=== PATIENT | male | born 1945 | race Caucasian/White ===

== ENCOUNTER 2018-06-08 05:44 | Inpatient (IN) ==
[2018-06-08] MEDS ORDERED: Metoprolol Tartrate 25 MG Tablet PO SCH (06:30)
[2018-06-08] MEDS ORDERED: Chlorhexidine Gluconate 2% 1 Pack (2 Cloths) TOPICAL SCH (06:30)
[2018-06-08] MEDS ORDERED: Sodium Chlor 0.9% Inj 500 ML IV.SIG SCH (07:00)
[2018-06-08 07:06] LABS: Baso # (Auto) 0.1 th/mm3 (0.0-0.2); Baso % (Auto) 1.2 % (0.0-2.0); Eos # (Auto) 0.1 th/mm3 (0.0-0.4); Eos % (Auto) 2.3 % (0.0-4.0); Hematocrit 37.8 % (39.0-51.0); Hemoglobin 12.3 gm/dL (13.0-17.0); Lymph # (Auto) 0.5 th/mm3 (1.0-4.8); Lymph % (Auto) 8.6 % (9.0-44.0); Mean Corpuscular HGB Conc 32.5 % (32.0-36.0); Mean Corpuscular Hemoglobin 29.8 pg (27.0-34.0); Mean Corpuscular Volume 91.6 fL (80.0-100.0); Mean Platelet Volume 7.2 fL (7.0-11.0); Mono # (Auto) 0.8 th/mm3 (0.0-0.9); Mono % (Auto) 14.1 % (0.0-8.0); Neut # (Auto) 4.4 th/mm3 (1.8-7.7); Neut % (Auto) 73.8 % (16.0-70.0); Platelet Count 206 th/mm3 (150-450); Red Blood Count 4.12 mil/mm3 (4.50-5.90); Red Cell Distribution Width 16.5 % (11.6-17.2); White Blood Count 5.9 th/mm3 (4.0-11.0)
[2018-06-08] MEDS ORDERED: Heparin 10,000 UNITS/10 ML Vial (for IV use) ONE (07:09)
[2018-06-08] MEDS ORDERED: Heparin/NS PF Inj 500 ML ONE (07:09)
[2018-06-08] MEDS ORDERED: Protamine Sulfate Inj 50 MG/5 ML Vial ONE ×2 (07:09→09:00)
--- NOTE | 2018-06-08 07:09 | P.HPVS ---
History of Present Illness Chief Complaint: AAA History of Present Illness: 73 yo male with asymptomatic AAA that has been watched for some time, no new changes in health that would preclude OR. No F/C. no abdominal or back pain. Ready for EVAR. - Inpatient Certification If this patient has been admitted as an Inpatient: I certify that the inpatient services were ordered in accordance with Medicare regulations governing the order. This includes certification that hospital inpatient services are reasonable and necessary and in the case of services not specified as inpatient-only under 42 CFR 419.22(n), that they are appropriately provided as inpatient services in accordance to with the 2-midnight benchmark under 43 CFR 412.3(e) Estimated Total Length of Stay (Days): 2 Plans for Post Hospital Care: Home Review of Systems Constitutional: Denies chills, Denies fatigue, Denies fever(s) Cardiovascular: Denies chest pain Gastrointestinal: Denies abdominal pain PMFSH - Medical History Medical History: Medical History (Last Reviewed 06/08/18 @ 07:07 by Pablo Aragon MD) Cirrhosis Kidney disease, chronic, stage III (GFR 30-59 ml/min) Myocardial infarct - Surgical History Surgical History: Surgical History (Last Reviewed 06/08/18 @ 07:07 by Pablo Aragon MD) Hx of cholecystectomy Hx of inguinal hernia surgery - Tobacco History Second Hand Smoke Exposure: No Tobacco Use In Past 30 Days: No Smoking Status: Current some day smoker Tobacco Type: Cigars - Alcohol History How Often Do You Have a Drink Containing Alcohol: Never - Substance Use History Substance History: No History of Abuse - Travel History Recent Travel in the [place] Within the Last 8 Weeks: No Recent Travel Out of the Country Within the Last 8 Weeks: No Medications and Allergies Active Medications: Active Medications Chlorhexidine Gluconate (Chlorhexidine 2% Cloth) 3 pack TOPICAL CORPORATE REAL ESTATE MANAGER SEN Stop: 06/11/18 06:21 Lactated Ringer's (Lr 1000 Ml Inj) 1,000 mls @ 30 mls/hr IV.SIG .Q24H SEN Stop: 06/11/18 06:21 Sodium Chloride (Ns Inj) 500 mls @ 30 mls/hr IV.SIG .Q10H SEN Stop: 06/11/18 06:21 Metoprolol Tartrate (Lopressor) 25 mg PO CORPORATE REAL ESTATE MANAGER SEN Stop: 06/11/18 06:21 Povidone Iodine (Betadine 5% Antisepsis Kit) 1 applicatio EACH NARE CORPORATE REAL ESTATE MANAGER SEN Stop: 06/11/18 06:21 Allergies Allergy/AdvReac Type Severity Reaction Status Date / Time No Known Allergies Allergy Verified 06/08/18 06:38 Home Medications Medication Instructions Recorded Confirmed Type furosemide 40 mg PO DAILY 06/08/18 06/08/18 History propranolol 20 mg PO BID 06/08/18 06/08/18 History spironolactone 100 mg PO DAILY 06/08/18 06/08/18 History trazodone 25 mg PO DAILY 06/08/18 06/08/18 History Physical Exam Vital Signs / I&O: Vital Signs 06/08/18 06:55 Temperature 97.6 F Pulse Rate 78 Respiratory Rate 20 Blood Pressure 161/86 H Pulse Oximetry 99 Intake & Output 06/07/18 06/08/18 06/08/18 18:59 06:59 18:59 Weight 66.8 kg Other: Weight On Admission 66.8 kg Neuro: alert, oriented HEENT: NC/AT, anicteric sclera Neck: no JVD Heart: reg rate, no M Lungs: clear B Abdomen: nontender Vascular: palpable femoral pulses Extremities: no groin rashes, wounds pending CTA reviewed Caprini VTE Risk Assessment Caprini VTE Risk Assessment: No/Low Risk (score <= 1) (intraoperative heparin) Caprini Risk Assessment Model: Point Value = 1 Point Value = 2 Point Value = 3 Point Value = 5 Age 41-60 Minor surgery BMI > 25 kg/m2 Swollen legs Varicose veins or History of unexplained or recurrent spontaneous Oral contraceptives or hormone replacement Sepsis (< 1 month) Serious lung disease, including pneumonia (< 1 month) Abnormal pulmonary function Acute myocardial infarction Congestive heart failure (< 1 month) History of inflammatory bowel disease Medical patient at bed rest Age 61-74 Arthroscopic surgery Major open surgery (> 45 min) Laparoscopic surgery (> 45 min) Malignancy Confined to bed (> 72 hours) Immobilizing plaster cast Central venous access Age >= 75 History of VTE Family history of VTE Factor V Leiden Prothrombin [id number] Lupus anticoagulant Anticardiolipin antibodies Elevated serum homocysteine Heparin-induced thrombocytopenia Other congenital or acquired thrombophilia Stroke (< 1 month) Elective arthroplasty Hip, pelvis, or leg fracture Acute spinal cord injury (< 1 month) Prophylaxis Regimen: Total Risk Factor Score Risk Level Prophylaxis Regimen 0-1 Low Early ambulation 2 Moderate Order ONE of the following: *Sequential Compression Device (SCD) *Heparin 5000 units SQ BID 3-4 Higher Order ONE of the following medications: *Heparin 5000 units SQ TID *Enoxaparin/Lovenox 40 mg SQ daily (WT < 150 kg, CrCl > 30 mL/min) *Enoxaparin/Lovenox 30 mg SQ daily (WT < 150 kg, CrCl > 10-29 mL/min) *Enoxaparin/Lovenox 30 mg SQ BID (WT < 150 kg, CrCl > 30 mL/min) AND/OR *Sequential Compression Device (SCD) 5 or more Highest Order ONE of the following medications: *Heparin 5000 units SQ TID (Preferred with Epidurals) *Enoxaparin/Lovenox 40 mg SQ daily (WT < 150 kg, CrCl > 30 mL/min) *Enoxaparin/Lovenox 30 mg SQ daily (WT < 150 kg, CrCl > 10-29 mL/min) *Enoxaparin/Lovenox 30 mg SQ BID (WT < 150 kg, CrCl > 30 mL/min) AND *Sequential Compression Device (SCD) Assessment and Plan - Assessment (1) AAA (abdominal aortic aneurysm) without rupture Code(s): I71.4 - Abdominal aortic aneurysm, without rupture Status: Acute - Plan EVAR discussed procedure with patient, , and sister again this morning. All questions answered. To OR. (Kimberly) [phone]
[2018-06-08 07:11] LABS: INR 1.1 Ratio; Prothrombin Time 11.2 sec (9.8-11.6)
--- NOTE | 2018-06-08 07:11 | XR ---
EXAM DATE: 06/08/2018 7:00 AM EDT AGE/SEX: 73 years / Male INDICATIONS: Evaluate for pneumonia, pneumothorax, and communicable disease. Pre op for aneurism re pair. CLINICAL DATA: This is the patient's initial encounter. Patient reports that signs and symptoms have been present for 1 day and indicates a pain score of 0/10. MEDICAL/SURGICAL HISTORY: Aneurysm, abdominal. None. COMPARISON: PCI, XR CHEST PA AND LAT, 12/27/2017. . FINDINGS: Comparison is December 27. There is a small to moderate size right pleural effusion at least partially l oculated with dense consolidation in the right perihilar region. These are new findings since December. Small left effusion. Mild basilar atelectasis. No pneumothorax. Heart size enlarged. CONCLUSION: Since December there is development of an increasing [id number] right pleural effusion with at le ast partial loculation and dense consolidation in the right perihilar region. Trace left pleural flui d. Basilar airspace disease. Electronically signed by: Avinash Sanchez MD 06/08/2018 7:10 AM EDT
[2018-06-08 07:25] LABS: Calcium 8.9 mg/dL (8.5-10.1); Carbon Dioxide 25.8 meq/L (21.0-32.0); Potassium 3.4 meq/L (3.5-5.1)
[2018-06-08] MEDS ORDERED: Glycopyrrolate Inj 1 MG/5 ML Syringe IV.PUSH ONE (07:36)
[2018-06-08] MEDS ORDERED: Lidocaine PF 1% Inj 5 ML Syringe INFILTRATN ONE (07:36)
[2018-06-08] MEDS ORDERED: Neostigmine Inj 5 MG/5 ML Syringe IV.PUSH ONE (07:36)
[2018-06-08] MEDS ORDERED: Phenylephrine/NS 1000 MCG/10ML Syringe IV.PUSH ONE (07:36)
[2018-06-08] MEDS ORDERED: Sodium Chlor 0.9% Inj 500 ML IV.SIG ONE (07:36)
[2018-06-08] MEDS ORDERED: Iohexol 300 MG/ML 50 ML Vial (for Rad Diag) IVCONTRAST ONE ×4 (09:01→10:00)
[2018-06-08] MEDS ORDERED: Dexmedetomidine Inj 200 MCG/2 ML Vial ONE (09:04)
[2018-06-08] MEDS ORDERED: Bisacodyl 10 MG Supp RECTAL PRN (09:09)
--- NOTE | 2018-06-08 09:09 | P.OP ---
Date of procedure: 06/08/18 Procedure: 1. EVAR 2. B REGULATORY AFFAIRS MANAGER Perclose (18F R, 14F L) Implants: Cook Zenith graft: [id number] main device, 13x74 LEFT, 13x56 RIGHT Anesthesia: GETA Surgeon: Pablo Aragon MD Mixer And Blender: Geneva Brooks Estimated blood loss (mL): 100 IV fluids (mL): 1,700 Urine output (mL): 35 Pathology: none sent Operation and Findings: successful EVAR; + Doppler signals B LE
[2018-06-08] MEDS ORDERED: KCL 20 mEq/D5W/NaCl 0.45% Inj 1,000 ML ONE (09:25)
[2018-06-08] MEDS ORDERED: fentaNYL Citrate Inj 100 MCG/2 ML Ampul ONE (09:38)
[2018-06-08] MEDS: KCL 20 mEq/D5W/NaCl 0.45% Inj 1,000 ML IV.CONT SCH ×2 (10:00→22:46)
--- NOTE | 2018-06-08 11:58 | MP ---
cc: Pablo Aragon MD DATE OF OPERATION: PREOPERATIVE DIAGNOSIS: Abdominal aortic aneurysm. POSTOPERATIVE DIAGNOSIS: Abdominal aortic aneurysm. PROCEDURE: 1. Endovascular exclusion of abdominal aortic aneurysm. 2. Bilateral common femoral artery Perclose (right side 18-Palestinian, left side 14-Palestinian). ATTENDING SURGEON: Pablo Aragon MD. HAIRSPRING FABRICATION SUPERVISOR SURGEON: TATIANNA Hernandez. ANESTHESIA: General Windy. INDICATIONS FOR PROCEDURE: Mr. Alonzo is a 73-year-old gentleman with a 5.5 cm abdominal aortic aneurysm that has had significant growth over the past 6 months. He is asymptomatic, was taken to the operating room for elective endovascular exclusion. DESCRIPTION OF PROCEDURE: Informed consent was obtained from the patient. He was taken to the operating room and placed supine on the operating table. An appropriate timeout was taken to insure the patient's identity, operative site and planned procedure. The administration of 2 grams of Ancef was initiated prior to skin incision and will be discontinued after a single preoperative dose. Everyone in the room agreed with the timeout and we proceeded. He was prepped from his nipples to the knees. A 21-gauge micropuncture needle was used to access both common femoral arteries with for micropuncture sheaths and 0.035 STORQ wires were introduced and the micropuncture sheaths were exchanged for a 5-Palestinian sheath which was used to dilate the skin and subcutaneous tract and arteriotomy. Two Perclose ProGlide sutures were inserted into both common femoral arteries and tagged; these will be used later. An 8-Palestinian sheaths were placed with a 10 cm sheath on the right and a 25 cm sheath on the left. The patient was then systemically heparinized and throughout the remainder of the case the ACT was confirmed to be greater than 250. The STORQ wire was advanced to the proximal descending thoracic aorta and the right hand STORQ wire exchanged using a catheter for a Lunderquist wire; and over the left hand, STORQ wire, a marker flush catheter was then placed. The 8-Palestinian sheath on the right was removed and a [place] dilator was used to dilate the skin, subcutaneous tract and arteriotomy and the main device, which was a [employer] 22-111 was introduced to approximately the level of the renal arteries and oriented in the appropriate fashion. Interval angiography was performed, which located the renal arteries. The graft was positioned appropriately so the fabric was immediately caudal to the renal arteries and deployed down the contralateral gate. The top cap was released after interval angiography confirmed the location of the left renal artery. The Roadrunner wire was passed through the marker catheter on the left and the marker catheter exchanged for a Cobra catheter and using the Roadrunner wire and Cobra catheter, we were able to navigate into the contralateral gate and the Cobra catheter was advanced to the main body and angiographically confirmed to be in the lumen. A Lunderquist wire was then advanced. The Cobra catheter was removed and a marker flush catheter was then placed and angiogram confirmed the location of the left hypogastric artery. The Cobra catheter was removed. The 4-Palestinian sheath was removed and the 25eight dilator was used to dilate the skin, subcutaneous tract and arteriotomy. The contralateral limb which was a Zenith 13 x 74, was introduced through the 14-Palestinian sheath and deployed without difficulty with sufficient overlap and seating in the distal common iliac artery. The delivery system was removed. The remainder of the main device was deployed through the right hand side and the top cap was recaptured. A marker catheter was then placed over the Lunderquist wire on the right hand side and an angiogram located the right hypogastric artery. The ipsilateral limb, which was a 13 x 56 limb, was introduced through the main body 18-Palestinian sheath and deployed without difficulty. The Coda balloon was used to balloon the proximal and distal ends and all junctions and completion angiogram showed excellent result. The wire, catheter and sheath were removed over the STORQ wires and the groin Perclose devices were tied down. Hemostasis was achieved in both groins and there were Doppler signals in the feet. Heparin reversed with protamine. The wounds were then closed with 4-0 Monocryl. Sponge and needle counts were correct at the end of the case. I was present, scrubbed, and performed the entire procedure. MD CELESTINO Beasley/maria guadalupe/brandon , 10:42 AM , 10:52 AM JENNIFFER
[2018-06-08 12:11] LABS: Bilirubin,Urine Negative (Negative); Clarity,Urine Hazy (Clear); Color,Urine Yellow (Yellw/Straw); Glucose,Urine (UA) Negative (Negative); Leukocyte Esterase,Urine Negative (Negative); Mucus,Urine Few /lpf (Occasional); Nitrite,Urine Negative (Negative); Specific Gravity,Urine 1.041 (1.002-1.035); Squamous Epithelial Cell,Urine 2 /hpf (0-5)
[2018-06-08] MEDS: Famotidine 20 MG Tablet PO SCH (20:47)
[2018-06-08] MEDS: Senna/Docusate Sodium 8.6/50 MG Tablet PO SCH (20:47)
--- NOTE | 2018-06-08 21:34 | ECG ---
Date Performed: 06/08/2018 Time Performed: 07:00:49 PTAGE: 73 years EKG: Sinus rhythm WITH FIRST DEGREE AV BLOCK NONSPECIFIC T-WAVE ABNORMALITY ABNORMAL ECG NO PREVIOUS TRACING DOCTOR: Oj Lawson Interpretating Date/Time 06/08/2018 21:31:52
[2018-06-09 05:23] LABS: Hematocrit 34.5 % (39.0-51.0); Hemoglobin 11.4 gm/dL (13.0-17.0); Mean Corpuscular HGB Conc 33.1 % (32.0-36.0); Mean Corpuscular Hemoglobin 30.1 pg (27.0-34.0); Mean Corpuscular Volume 90.9 fL (80.0-100.0); Mean Platelet Volume 7.4 fL (7.0-11.0); Platelet Count 178 th/mm3 (150-450); Red Cell Distribution Width 16.1 % (11.6-17.2); White Blood Count 11.9 th/mm3 (4.0-11.0)
[2018-06-09 05:43] LABS: Calcium 8.3 mg/dL (8.5-10.1); Carbon Dioxide 21.1 meq/L (21.0-32.0); Potassium 4.2 meq/L (3.5-5.1)
--- NOTE | 2018-06-09 06:49 | P.PNVS ---
Subjective Post Op Day #: 1 Procedure: EVAR, B DRY CLEANING MACHINE OPERATOR HELPER Perclose Subjective/Hospital Course: Looks great. No complaints. Emilee po groins ok. Caballero just removed. Objective Vital Signs / I&O: Vital Signs 06/08/18 06:55 06/08/18 09:32 06/08/18 09:45 Temperature 97.6 F 96.5 F L Pulse Rate 78 74 69 Respiratory Rate 20 26 H 17 Blood Pressure 161/86 H 137/71 139/70 Pulse Oximetry 99 100 99 06/08/18 10:00 06/08/18 10:15 06/08/18 10:30 Temperature Pulse Rate 64 62 60 Respiratory Rate 16 15 16 Blood Pressure 134/65 134/63 124/62 Pulse Oximetry 97 97 98 06/08/18 10:31 06/08/18 10:36 06/08/18 11:00 Temperature 98.2 F Pulse Rate 60 53 L Respiratory Rate 18 Blood Pressure 120/60 Pulse Oximetry 98 97 06/08/18 12:00 06/08/18 13:00 06/08/18 14:00 Temperature 98.0 F Pulse Rate 74 72 Respiratory Rate 18 Blood Pressure 112/62 Pulse Oximetry 98 06/08/18 15:00 06/08/18 16:00 06/08/18 17:00 Temperature 98.3 F Pulse Rate 53 L 60 62 Respiratory Rate 18 Blood Pressure 108/62 Pulse Oximetry 97 06/08/18 18:00 06/08/18 19:15 06/08/18 20:00 Temperature 98.4 F Pulse Rate 64 61 60 Respiratory Rate 19 Blood Pressure 105/50 L Pulse Oximetry 99 06/08/18 21:00 06/08/18 22:00 06/08/18 23:00 Temperature 98.7 F Pulse Rate 66 70 68 Respiratory Rate 20 Blood Pressure 119/60 Pulse Oximetry 99 06/09/18 00:00 06/09/18 01:00 06/09/18 02:00 Temperature Pulse Rate 74 74 78 Respiratory Rate Blood Pressure Pulse Oximetry 06/09/18 03:30 06/09/18 03:41 06/09/18 04:16 Temperature 97.7 F Pulse Rate 78 75 76 Respiratory Rate 18 Blood Pressure 134/76 Pulse Oximetry 96 06/09/18 05:11 06/09/18 06:38 Temperature Pulse Rate 75 83 Respiratory Rate Blood Pressure Pulse Oximetry Intake & Output 06/08/18 06/08/18 06/09/18 06:59 18:59 06:59 Intake Total 2400 / 2400 1240 / 1240 Output Total 510 / 510 250 / 250 Balance 1890 / 1890 990 / 990 Weight 66.8 kg 68.5 kg Intake: IV 1000 / 1000 1000 / 1000 Heparin/NS PF Inj 500 ML @ 0 0 / 0 mls/hr .ROUTE .STK-MED ONE Rx#: [id number] D5W/1/2NS + KCL 20 mEq Inj 1, 1000 / 1000 000 ML @ 84 mls/hr IV.CONT . [id number] [facility] Rx#:[id number] LR 1000 mL Inj 1,000 ML @ 30 1000 / 1000 mls/hr IV.SIG .Q24H [facility] Rx#: [id number] Oral 700 / 700 240 / 240 Anesthesia Amount 700 / 700 Output: Estimated Blood Loss 100 / 100 Urine Amount (Catheter) 410 / 410 250 / 250 Indwelling Urethral Catheter 410 / 410 250 / 250 Other: Weight On Admission 66.8 kg Exam: sitting in chair. B LE pulses groins soft, no hematomas Laboratory Results - last 24 hr 06/08/18 06/08/18 06/08/18 06:45 06:45 06:45 WBC 5.9 RBC 4.12 L Hgb 12.3 L Hct 37.8 L MCV 91.6 MCH 29.8 MCHC 32.5 RDW 16.5 Plt Count 206 MPV 7.2 Neut % (Auto) 73.8 H Lymph % (Auto) 8.6 L [place] % (Auto) 14.1 H Eos % (Auto) 2.3 Baso % (Auto) 1.2 Neut # (Auto) 4.4 Lymph # (Auto) 0.5 L [place] # (Auto) 0.8 Eos # (Auto) 0.1 Baso # (Auto) 0.1 WBC Differential . Differential Comment Auto diff final PT 11.2 INR 1.1 APTT Sodium 139 Potassium 3.4 L Chloride 102 Carbon Dioxide 25.8 Anion Gap 11 BUN 24 H Creatinine 1.64 H Estimated GFR 41 L Random Glucose 93 Calcium 8.9 Urine Color Urine Clarity Urine pH Ur Specific [place] Urine Protein Urine Glucose (UA) Urine Ketones Urine Occult Blood Urine Nitrate Urine Bilirubin Urine Urobilinogen Ur Leukocyte Esterase Urine RBC Urine WBC Ur Squamous Epith Cells Urine Mucus Micro UA Comment Ur Microscopic Review Urine Culture Comments Blood Type Blood Type Recheck Antibody Screen 06/08/18 06/08/18 06/08/18 06:45 06:45 11:26 WBC RBC Hgb Hct MCV MCH MCHC RDW Plt Count MPV Neut % (Auto) Lymph % (Auto) [place] % (Auto) Eos % (Auto) Baso % (Auto) Neut # (Auto) Lymph # (Auto) [place] # (Auto) Eos # (Auto) Baso # (Auto) WBC Differential Differential Comment PT INR APTT 21.4 L Sodium Potassium Chloride Carbon Dioxide Anion Gap BUN Creatinine Estimated GFR Random Glucose Calcium Urine Color Yellow Urine Clarity Hazy H Urine pH 6.0 Ur Specific [place] 1.041 H Urine Protein 500 or greater Urine Glucose (UA) Negative Urine Ketones Negative Urine Occult Blood Small H Urine Nitrate Negative Urine Bilirubin Negative Urine Urobilinogen 2.0 H Ur Leukocyte Esterase Negative Urine RBC 33 H Urine WBC 4 Ur Squamous Epith Cells 2 Urine Mucus Few H Micro UA Comment Cath-culture not ind Ur Microscopic Review Not Reportable Urine Culture Comments Cath-cult not ind Blood Type O Positive Blood Type Recheck Required Antibody Screen Negative 06/09/18 06/09/18 04:38 04:38 WBC 11.9 H D RBC 3.80 L Hgb 11.4 L Hct 34.5 L MCV 90.9 MCH 30.1 MCHC 33.1 RDW 16.1 Plt Count 178 MPV 7.4 Neut % (Auto) Lymph % (Auto) [place] % (Auto) Eos % (Auto) Baso % (Auto) Neut # (Auto) Lymph # (Auto) [place] # (Auto) Eos # (Auto) Baso # (Auto) WBC Differential Differential Comment PT INR APTT Sodium 134 L Potassium 4.2 D Chloride 102 Carbon Dioxide 21.1 Anion Gap 11 BUN 23 H Creatinine 1.54 H Estimated GFR 44 L Random Glucose 152 H Calcium 8.3 L Urine Color Urine Clarity Urine pH Ur Specific [place] Urine Protein Urine Glucose (UA) Urine Ketones Urine Occult Blood Urine Nitrate Urine Bilirubin Urine Urobilinogen Ur Leukocyte Esterase Urine RBC Urine WBC Ur Squamous Epith Cells Urine Mucus Micro UA Comment Ur Microscopic Review Urine Culture Comments Blood Type Blood Type Recheck Antibody Screen Assessment and Plan - Assessment (1) AAA (abdominal aortic aneurysm) without rupture Code(s): I71.4 - Abdominal aortic aneurysm, without rupture Status: Acute - Plan POD#1 s/p EVAR 1. D/c once voids 2. RTC 1m with CTA A/P Discharge Planning: today after voids
[2018-06-09] MEDS ORDERED: Enoxaparin Inj 40 MG/0.4 ML Syringe SQ SCH (08:30)
[2018-06-09] MEDS: Senna/Docusate Sodium 8.6/50 MG Tablet PO SCH (08:43)
[2018-06-09] MEDS: Famotidine 20 MG Tablet PO SCH (08:44)
[2018-06-09] MEDS ORDERED: traZODone 50 MG Tablet PO SCH (09:00)
--- NOTE | 2018-06-09 09:19 | P.DS ---
Discharge Summary - Admission Date 06/08/18 05:44 - Admission Diagnosis (1) AAA (abdominal aortic aneurysm) without rupture - Discharge Date 06/09/18 - Discharge Diagnosis (1) AAA (abdominal aortic aneurysm) without rupture Status: Acute (2) History of endovascular stent graft for abdominal aortic aneurysm (AAA) Status: Acute - Summary Brief History from admission: 73 yo male with asymptomatic AAA that has been watched for some time, no new changes in health that would preclude OR. No F/C. no abdominal or back pain. Ready for EVAR. Procedure: EVAR, B MANAGER OF APPLICATION DEVELOPMENT Perclose Significant Findings: Abdomen soft non tender LE warm w/ palpable R/L DP Pt w/o abdominal/back pain Bilateral groins soft w/o hematoma or swelling Abnormal Lab Results 06/08/18 06/09/18 06/09/18 11:26 04:38 04:38 WBC 11.9 H D RBC 3.80 L Hgb 11.4 L Hct 34.5 L MCV 90.9 MCH 30.1 MCHC 33.1 RDW 16.1 Plt Count 178 MPV 7.4 Sodium 134 L Potassium 4.2 D Chloride 102 Carbon Dioxide 21.1 Anion Gap 11 BUN 23 H Creatinine 1.54 H Estimated GFR 44 L Random Glucose 152 H Calcium 8.3 L Urine Color Yellow Urine Clarity Hazy H Urine pH 6.0 Ur Specific [place] 1.041 H Urine Protein 500 or greater Urine Glucose (UA) Negative Urine Ketones Negative Urine Occult Blood Small H Urine Nitrate Negative Urine Bilirubin Negative Urine Urobilinogen 2.0 H Ur Leukocyte Esterase Negative Urine RBC 33 H Urine WBC 4 Ur Squamous Epith Cells 2 Urine Mucus Few H Micro UA Comment Cath-culture not ind Ur Microscopic Review Not Reportable Urine Culture Comments Cath-cult not ind Hospital Course: 73 yo male with asymptomatic AAA Pt S/p EVAR POD 1 Pt w/o complaints Pt denied pain to B groin regions, abdomen or back LE warm w/ motor intact and palpable distal pulses B Groins s/nt Pt clear for D/C - after pt voids w/o difficulty post Caballero removal Arranged out pt f/u in 1M with a surveillance CTA A/P post EVAR - Discharge Instructions Any questions or concerns: Call [facility] at [facility] [phone] Discharge Plan - Discharge Disposition Patient Disposition: 01 Discharge Home - Discharge Condition Condition: Good - Discharge Order Discharge Orders: Discharge Order (Routine); Ordered 06/09/18 Ordered By: Audelia Escobedo - Physicians Team Primary Care Provider: Sukhi Chaudhry Attending Provider: Pablo Aragon - Rxs /Orders / Referrals /Forms Prescriptions: Continue furosemide 40 mg Tablet 40 mg PO DAILY propranolol 20 mg Tablet 20 mg PO BID spironolactone 100 mg Tablet 100 mg PO DAILY trazodone 50 mg Tablet 25 mg PO DAILY Referrals: Sukhi Chaudhry MD [Primary Care Provider] - See Instructions Pablo Aragon MD [Physician] - See Instructions (Post op f/u on 07/13/18 at 10:00 with a surveillance CTA A/P post EVAR ) - Discharge Instructions Patient Printed Instructions: Endovascular Aneurysm Repair of Abdominal Aorta ( GEN) - Post Discharge Care Plan Care Plan Goals: Discharge Care Plan Goals for AAA S/P Endovascular Aneurysm Repair Directions to Meet your Goals: 1. Pain Relief: You will recover faster after surgery if your pain is kept under control: * Take pain medicine as directed by your doctor. 2. Activity: * Dont drive until your doctor says its OK. And never drive while taking opioid pain medicine. * Ask someone to stand nearby while you shower or do other activities, just in case you need help. Activities as tolerated 3. Diet and Exercise: * Maintain a healthy weight. If needed, get help to loose extra pounds. * Avoid fatty and fried foods. Stick to lean meats, such as chicken or fish. * Cut back on salt: - Limit canned, dried, packaged, and fast foods. - Dont add salt to your food at the table. - Season foods with herbs instead of salt when you cook * Ask your healthcare provider when you can start a walking program: - If you havent already started a walking program in the hospital, begin with short walks (about 5 minutes) at home. Go a little longer each day. - Choose a safe place with a level surface, such as a local park or mall. - Wear supportive shoes to prevent injury to your knees and ankles. - Walk with someone. Its more fun and helps you stay with it. 4. Prevent Falls/Injury: * If you are unstable on your feet, remember to ask for help from others. * Avoid using very hot water while showering. It can affect your circulation and make you dizzy. * Free up your hands so that you can use them to keep balance. Use a suri pack , apron, or pockets to carry things. * Arrange your household to keep the items you need handy. Keep everything else out of the way. * Remove items that may cause you to fall, such as throw rugs and electrical cords. * Use nonslip bath mats, grab bars, an elevated toilet seat, and a shower chair in your bathroom * Sit on a shower stool or chair when you shower to keep from falling. 5. Incision Care: * Check your bilateral groins daily for redness, swelling, tenderness, or drainage. * Prevent infection by washing your hands often. If an infection occurs, it will need to be treated right away. * Call your doctor right away if you think you may have an infection. Symptoms include a fever or an incision that leaks white, green, or yellow fluid. * Don't soak your incision in water until your doctor says its OK. This means no hot tubs, bathtubs, or swimming pools. * Dont rub the incision, or apply creams or lotions to it. Leave your incisions/puncture wounds open to air 6. Follow-Up: Do Not miss your follow-up appointment. Keep up with all your appointments and yearly check ups When to call your doctor: Call your doctor right away if you have: Fever of 100.4F (38C) or higher, or as directed by your doctor Signs of infection (redness, swelling, drainage, or warmth) at the incision site Unrelieved pain at the incision site(s) Changes in the location, type, or severity of pain Persistent abdominal pain Nausea Trouble urinating Any unusual bleeding
[2018-06-09] MEDS: KCL 20 mEq/D5W/NaCl 0.45% Inj 1,000 ML IV.CONT SCH (11:00)
== END 2018-06-09 14:50 | disposition home or self-care (01) ==
LOC: HSDI 05:44 → HCPC 11:36
PROVIDERS: ADMIT Surgery; ATTEND Surgery
PROC: RPANETH (ICD-10-PCS; 2018-06-08 07:36)